=== PATIENT | male | born 1945 | race Caucasian/White ===

== ENCOUNTER 2017-05-09 20:30 | Emergency (ER) | payer OTHER ==
[~2017-05-09] VITALS: Ht 160 cm; Wt 68.0 kg
--- NOTE | ~2017-05-09 | EKG ---
[place], [place] ELECTROCARDIOGRAM REPORT NAME: YUAN ENRIQUE UNIT #: [id number] ROOM: DOCTOR: MARILOU CALDERA MD BIRTHDATE: [birth year] DOS: 05/09/2017 TIME: 2036 hours. Normal sinus rhythm at 76 beats per minute. There is 0.[address] segment pressure with T-wave abnormality in the V4 to V6 and inferiorly and aVL that raises a possibility of inferolateral wall myocardial ischemia. No previous tracing is available for comparison. MARILOU CALDERA MD CM:EKGRPT:ELECTROCARDIOGRAM REPORT [id number] MARILOU CALDERA MD
[~2017-05-09 20:30] MED LIST: CIPRO500 MG PO; COZAAR50 MG PO; DOXYCYCLINE100 MG PO; LISINOPRIL20 MG PO; LOPRESSOR100 MG PO; NORVASC10 MG PO; PROVENTIL0.09 MG/A1 IH; SPIRIVA18 MCG IH; ZOCOR40 MG PO
[2017-05-09 21:11] LABS: BASO # 0.1 10*3/uL (0.0-0.1); BASO % 0.6 % (0.0-1.0); EOS # 0.2 10*3/uL (0.0-0.4); HEMATOCRIT 51.4 % (42.0-52.0); HEMOGLOBIN 17.3 g/dl (14.0-18.0); LYMPH # 2.5 10*3/uL (1.3-4.4); LYMPH % 24.7 % (27.0-41.0); MEAN CELL VOLUME 94.8 fl (80.0-94.0); MEAN CORPUSCULAR HGB 31.9 pg (27.0-31.0); MEAN CORPUSCULAR HGB CONC 33.7 g/dl (33.0-37.0); MONO # 0.8 10*3/uL (0.1-1.0); NEUT # 6.5 10*3/uL (2.3-7.9); NEUT % 64.4 % (47.0-73.0); PLATELET COUNT AUTOMATED 115 10*3/uL (130-400); RED BLOOD COUNT 5.42 10*6/uL (4.50-5.90); RED CELL DISTRI WIDTH 13.3 % (0-14.5); WHITE BLOOD COUNT 10.1 10*3/uL (4.8-10.8)
[2017-05-09 21:28] LABS: ALBUMIN 4.1 gm/dl (3.1-4.5); ALKALINE PHOSPHATASE 53 U/L (45-117); BUN 22 mg/dl (7-24); CHLORIDE 103 mmol/L (98-107); CREATININE 0.83 mg/dL (0.70-1.30); LIPASE 123 U/L (73-393); POTASSIUM 4.2 mmol/L (3.5-5.1); SGOT/AST 18 IU/L (3-35); SGPT/ALT 24 U/L (12-78); SODIUM 139 mmol/L (136-145); TOTAL PROTEIN 7.5 gm/dL (6.4-8.2)
[2017-05-09 21:31] LABS: TROPONIN I < 0.015 ng/ml (<0.045)
[2017-05-09] MEDS ORDERED: VIBRAMYCIN100 MG PO (22:41)
[2017-05-09] MEDS ORDERED: DELTASONE20 M1 PO (22:41)
== END 2017-05-09 22:48 | disposition home or self-care (01) ==
LOC: ED 20:30
PROVIDERS: Physician Assistant
DX: J44.1 Chronic obstructive pulmonary disease with (acute) exacerbation (principal); F17.200 Nicotine dependence, unspecified, uncomplicated; Z79.899 Other long term (current) drug therapy

== ENCOUNTER 2017-12-17 22:12 | Inpatient (IN) | payer OTHER ==
[~2017-12-17] VITALS: Ht 162.6 cm; Wt 69.9 kg
--- NOTE | ~2017-12-17 | PR ---
[place], [place] PROGRESS NOTE NAME: YUAN ENRIQUE UNIT #: [id number] ROOM: 426 DOCTOR: ALICE AMES MD BIRTHDATE: [birth year] DOS: 12/21/2017 PULMONARY PROGRESS NOTE SUBJECTIVE: He has been noted similar symptoms of cough, which has been nonproductive. The patient without any sputum expectoration. Denies symptoms of chest pain or any hemoptysis. He denies symptoms of nausea, vomiting, edema, pain, lower extremity and weak and fatigued, but no edema noted, somewhat anxious for the procedure to be done today as a bronchoscopy. Remaining systems reviewed. They were noted all negative. OBJECTIVE: VITAL SIGNS: Normal temperature, respiratory 20, heart rate 58, blood pressure 160/73. Pulse oxygen saturation of the patient on 3 liters cannula 93% saturation recorded. HEENT: Head was atraumatic. Eyes nonicterus. NECK: Supple. CARDIOVASCULAR: S1, S2 is audible. LUNGS: The patient was noted without any crackles. Decreased breath sounds are noted with expiratory wheezing, no crackles. ABDOMEN: Soft, nontender. Bowel sounds present. EXTREMITIES: Without any acute edema. MUSCULOSKELETAL: Acute deformities. CENTRAL NERVOUS SYSTEM: Cranial nerves 2-12 intact. LABORATORY DATA: CBC that was done for this patient, there was no CBC done today. IMPRESSION: 1. The patient with ongoing acute exacerbation of chronic obstructive pulmonary disease with resolved acute pneumonia, nonresolving cough which remains persistent. Suspected mucus impaction of the major airways. 2. Leukocytosis was still noted. PLAN OF MANAGEMENT: No changes in the plan of care. The patient at this time to continue current therapy, plan of management and treatment. Usual care, other supportive plan of therapy and care. Additional treatment changes, the patient needs to be made based on the progression of the illness and after bronchoscopy as needed. All other supportive plan of therapy and care plan. [place], [place] PROGRESS NOTE NAME: YUAN ENRIQUE UNIT #: [id number] ROOM: 426 DOCTOR: ALICE AMES MD BIRTHDATE: [birth year] ALICE CANO MD CM:TANIKATRANS 1307 [id number] ALICE NOEL MD 12/21/17 1620 interface
--- NOTE | ~2017-12-17 | CON ---
[place], [place] REPORT OF CONSULTATION NAME: YUAN ENRIQUE UNIT #: [id number] ROOM: 426 DOCTOR: RACHAEL NOEL MDALICE BIRTHDATE: [birth year] DOS: 12/18/2017 PULMONARY CONSULTATION, EVALUATION AND MANAGEMENT CONSULTATION REQUESTED BY: Hospitalist Service. REASON FOR CONSULTATION: For assessment of acute respiratory failure with exacerbation of COPD. HISTORY OF PRESENT ILLNESS: A 72-year-old white male who has been noted with longstanding history of tobacco use since teenager, presented to the hospital. The patient has developed increased symptoms of shortness of breath, which has been ongoing for several days, but noted worsening in the past couple of days. The patient's shortness of breath also worsened when the patient was trying to cut grass today prior to the visit in the Emergency Room. The patient also noted symptoms of fever with chills, nausea, constipation, lightheadedness. Also reported symptoms of right upper quadrant pain. The patient does have cough without any sputum expectoration. Also noted some wheezing and tightness in the chest. The patient was started on the BiPAP and the patient was assessed in the Emergency Room. The chest x-ray was described as possibility of acute pneumonia. He has a CT scan of the abdomen, pelvis, and the chest all done in the Emergency Room. This morning, the patient has been noted sitting at the side of the bed, stated partial reduction in symptoms, still noted with ongoing respiratory complaints. At this time, the family members had been available in the room with the patient. REVIEW OF SYSTEMS: CONSTITUTIONAL SYMPTOMS: Fatigue and tiredness reported without any symptoms of fever or chills. EYES: Denies any burning, redness, tenderness or discharge. EARS, NOSE AND THROAT SYMPTOMS: Denies sore throat, hoarseness, otalgia, postnasal drainage or epistaxis. CARDIOVASCULAR SYSTEM: Denies angina pain, edema, or pain in the lower extremity. GASTROINTESTINAL SYMPTOMS: Denies dysphagia, nausea, vomiting, diarrhea, abdominal pain, hematemesis, melena, hematochezia, abnormal weight loss or dysphagia. GENITOURINARY SYMPTOMS: Denies dysuria, suprapubic pain or hematuria. MUSCULOSKELETAL SYMPTOMS: Denies acute joint pain, redness, or tenderness. CENTRAL NERVOUS SYSTEM: The patient was noted without any acute deficits. Denies any tingling sensation of the extremities, headache or diplopia. Remaining systems were reviewed. They were noted all negative. PAST MEDICAL HISTORY: 1. Essential hypertension. 2. Chronic obstructive pulmonary disease. 3. Chronic long-term nicotine dependence. PAST SURGICAL HISTORY: Noted abdominal hernia repair. [place], [place] REPORT OF CONSULTATION NAME: YUAN ENRIQUE UNIT #: [id number] ROOM: 426 DOCTOR: ALICE AMES MD BIRTHDATE: [birth year] SOCIAL HISTORY: The patient is , has 4 children. Denies any history of alcohol use or any illicit drug use. Tobacco use noted 1 pack of cigarettes for the past 60 years. FAMILY HISTORY: Both parents have been . HOME MEDICATIONS: Listed as use of: 1. Spiriva, albuterol sulfate with the nebulizer and the MDI use. 2. Norvasc 10 mg daily. 3. Lisinopril 20 mg daily. 4. Metoprolol tartrate 50 mg p.o. b.i.d. DRUG ALLERGIES: No known drug allergies. PHYSICAL EXAMINATION: GENERAL: A 72-year-old white male who has been noted currently awake and alert without any acute distress. VITAL SIGNS: Height of 5 feet 4 inches, weight 254 pounds, BMI 26.4. VITAL SIGNS: Temperature noted 102.5 degree Fahrenheit, later noted 101 and this morning is 97.8 degree Fahrenheit, respiratory rate of 20-31. The heart rate of 80-134. The blood pressure 156/68-120/54. The pulse oxygen saturation on 40% oxygen is 96% saturation recorded. HEENT: Head was atraumatic. Eyes nonicterus. NECK: Supple. CARDIOVASCULAR: S1, S2 audible. LUNGS: Diffuse poor air exchange noted in the lungs. There was no wheezing heard. ABDOMEN: Soft, flat, nontender, bowel sounds present. EXTREMITIES: Without any acute edema. MUSCULOSKELETAL SYMPTOMS: Without any acute deformities. CENTRAL NERVOUS SYSTEM: The patient's cranial nerves 2-12 intact without any focal deficit. LABORATORY DATA: The CBC that was done yesterday noted WBC count 14.4, hemoglobin 17.7, hematocrit 53.4 with platelet count recorded as normal. The CBC that was done this morning shows WBC count 11.7, hemoglobin 16.6, hematocrit 50.6, platelet count mildly decreased 127,000 today. CMP that was done yesterday noted essentially normal CMP. CMP this morning, glucose 152, otherwise remains normal. PT/PTT this morning normal. The chest x-ray shows hyperinflation with right upper lung infiltration. Influenza A and B nasal washing antigen negative. CT scan chest, abdomen and pelvis, which was done yesterday for the patient was reviewed, evidence of acute infiltration noted in the right upper lung, pleural area with the finding of moderate to severe centrilobular emphysema. CT scan of the abdomen and pelvis noted chronic diverticulosis without any acute abnormalities. The patient had a CTA of the chest that was done early this morning does not show evidence of pulmonary embolism. Other changes previously described remains unchanged. IMPRESSION: [place], [place] REPORT OF CONSULTATION NAME: YUAN ENRIQUE UNIT #: [id number] ROOM: 426 DOCTOR: ALICE AMES MD BIRTHDATE: [birth year] 1. The patient has been currently admitted to the hospital noted with increased respiratory symptom with acute exacerbation of chronic obstructive pulmonary disease as well as acute pneumonia right upper lobe, community-acquired infection. 2. Chronic nicotine dependence. 3. Polycythemia with suspicion of chronic hypoxia at home, which was untreated. 4. Long-term tobacco use as well. PLAN OF MANAGETMENT: The patient has been on IV hydration. Improvement in hemoglobin and hematocrit noted. Sputum for Gram stain and culture. Bronchodilators. Counseling for tobacco cessation was done for the patient more than 3 minutes as well on this admission. He was agreeable to use nicotine replacement patch 21 mg to the skin daily that was ordered. The dose of Solu-Medrol 60 mg continued. Continue antibiotic as Levaquin. Monitor culture results prior to making any changes and an immediate chest x-ray to assess the patient. Further adjustment in medication will be ordered accordingly. Thanks for allowing me to participate in the care of this patient. ALICE CANO MD CM:CONSTR:REPORT OF CONSULTATION 1348 12/19/17 0332 interface
--- NOTE | ~2017-12-17 | PR ---
[place], [place] PROGRESS NOTE NAME: YUAN ENRIQUE UNIT #: [id number] ROOM: 426 DOCTOR: ALICE AMES MD BIRTHDATE: [birth year] DOS: 12/20/2017 SUBJECTIVE: He was still noted coughing, which was noted mostly nonproductive, minimal sputum expectoration noted. Shortness of breath occurs with exertion, but the overall reduction was noted. The patient does complain of symptoms of tightness in chest intermittently. Wheezing has been decreasing. OBJECTIVE: VITAL SIGNS: For the patient which were recorded. The patient shows a temperature noted normal, respiration 20, heart rate of 84, blood pressure 133/62. The pulse oxygen saturation on 2 liters nasal cannula 93% saturation recorded. HEENT: Head was atraumatic. Eyes, nonicterus. NECK: Supple. CARDIOVASCULAR: S1, S2 audible. LUNGS: Decreased breath sounds noted in the lungs bilaterally without changes. Scattered wheezing. There were no crackles. ABDOMEN: Soft, nontender. LABORATORY DATA: CBC today was noted with WBC count 17.5, hemoglobin normal, hematocrit were normal. The BMP this morning was noted with normal BUN and creatinine. Chest x-ray, 2-view, which was done was noted changes of severe COPD without any acute pulmonary infiltration. IMPRESSION: Persistent nonresolving cough with reduction in symptoms of shortness of breath. Right upper lobe pneumonia, which has been noted previously, seemed to be resolved. Mucous impaction suspected. Leukocytosis still noted with gradual reduction. PLAN OF TREATMENT: The patient was considered for bronchoscopy to be done tomorrow morning for the inspection and removal of the mucous impaction of the major airway is very likely because of nonresolution of cough. Reduce the Solu-Medrol 40 mg b.i.d. Continuation of the supportive plan of management therapy, plan of care as in progress. Continue abstinence of tobacco use. [place], [place] PROGRESS NOTE NAME: YUAN ENRIQUE UNIT #: [id number] ROOM: 426 DOCTOR: ALICE AMES MD BIRTHDATE: [birth year] ALICE AZIZ, MD CM:TANIKATRANS 1245 ALICE NOEL MD 12/20/175 interface
--- NOTE | ~2017-12-17 | EKG ---
[place], [place] ELECTROCARDIOGRAM REPORT NAME: YUAN ENRIQUE UNIT #: [id number] ROOM: 426 DOCTOR: RACHAEL NOEL MD,ALICE BIRTHDATE: [birth year] DOS: 12/18/2017 Electrocardiogram done at 2314 hours on 12/17/2017. Sinus tachycardia noted, heart rate of [address] segment depression. The patient still noted in the chest leads V2, V3, V4 with LVH criteria met with the voltage for this patient as well. Rule out ischemia. ALICE CANO MD CM:EKGRPT:ELECTROCARDIOGRAM REPORT 1404 1442 ALICE NOEL MD
--- NOTE | ~2017-12-17 | EKG ---
[place], [place] ELECTROCARDIOGRAM REPORT NAME: YUAN ENRIQUE UNIT #: [id number] ROOM: 426 DOCTOR: RACHAEL NOEL MD,ALICE BIRTHDATE: [birth year] DOS: 12/18/2017 Echocardiogram was done on 12/18/2017 at 10:17 p.m. Sinus tachycardia noted with the patient's heart rate of 138 beats per minute. Ventricular bigeminy. Possible LVH to be considered based on voltage criteria. ST segment depression in the lateral leads, most likely would be considered from the LVH showed ischemia to be excluded. ALICE CANO MD CM:EKGRPT:ELECTROCARDIOGRAM REPORT 1402 1424 ALICE NOEL MD
--- NOTE | ~2017-12-17 | PROC NOTE ---
[place], [place] PROCEDURE NOTE NAME: YUAN ENRIQUE UNIT #: [id number] ROOM: 426 DOCTOR: RACHAEL NOEL MD,ALICE BIRTHDATE: [birth year] DOS: 12/21/2017 PROCEDURE: Bronchoscopy. PREOPERATIVE DIAGNOSES: Persistent severe nonresolving cough, suspected mucus impaction in the airway. POSTOPERATIVE DIAGNOSES: Persistent severe nonresolving cough, suspected mucus impaction in the airway. PROCEDURE DESCRIPTION: Informed consent obtained for the patient. The patient brought to the OR and placed in supine position. Conscious sedation administered by the Anesthesia Department. After achieving proper sedation, airway introduced into the mouth. Bronchoscope advanced to the airway into laryngeal area. Epiglottis vocal cord seen. The bronchoscope entered vocal cord and tracheal lumen. The tracheal lumen was noted with a small amount of secretions suctioned out. Right upper, right middle, right lower, left upper, lingular lobe bronchi were all examined. The patient noted moderate impaction of the mucus mainly in the lower lobe, in endobronchial tree, in right middle lobe. Secretions suctioned out clear with normal saline wash. No obstructing lesion noted. Procedure well tolerated by the patient without any difficulty. Postoperative findings will be discussed, once the patient recovered the effects of acute sedation. No family members available. The patient at this time to discuss the current findings. ALICE CANO MD CM:PROCNOTE:PROCEDURE NOTE 1309 1750 ALICE NOEL MD
--- NOTE | ~2017-12-17 | EKG ---
[place], [place] ELECTROCARDIOGRAM REPORT NAME: YUAN ENRIQUE UNIT #: [id number] ROOM: 426 DOCTOR: RACHAEL NOEL MD,ALICE BIRTHDATE: [birth year] DOS: 12/18/2017 Echocardiogram was done at 10:52 p.m. on 12/17/2017. Sinus tachycardia noted. Heart rate of 115 beats per minute. PVC was noted. The ST segment elevation was still noted persistent in the lateral leads might be related to the LVH, rule out ischemia. ALICE CANO MD CM:EKGRPT:ELECTROCARDIOGRAM REPORT 1403 1439 ALICE NOEL MD
--- NOTE | ~2017-12-17 | PR ---
[place], [place] PROGRESS NOTE NAME: YUAN ENRIQUE UNIT #: [id number] ROOM: 426 DOCTOR: RACHAEL NOEL MD,ALICE BIRTHDATE: [birth year] DOS: 12/22/2017 SUBJECTIVE: The patient had bronchoscopy done yesterday significant reduction and improvement in the respiratory symptoms were noted. Denies symptoms of chest pain or any hemoptysis. Wheezing noted absent. OBJECTIVE: VITAL SIGNS: This morning, normal temperature, respiratory rate 20, heart rate 97, blood pressure 134/70. The pulse oxygen saturation recorded as 90% on 2 L nasal cannula. HEAD, EYES, EARS, NOSE, AND THROAT: Head was atraumatic. Eyes nonicterus. NECK: Supple. CARDIOVASCULAR: S1, S2 audible. LUNGS: The patient was noted without any wheezing or crackles on today's exam. ABDOMEN: Soft, nontender, bowel sounds present. EXTREMITIES: No edema. LABORATORY DATA: Gram stain of the bronchial washings, many white blood cells with moderate gram-positive cocci appears in clusters. Urine culture the bronchial washing noted normal juan. IMPRESSION: ____ bronchoscopy, reduction in respiratory symptom resolving acute exacerbation of chronic obstructive pulmonary disease. PLAN OF TREATMENT: Upon discharge, the patient should be assessed for home oxygen need. The patient could be discharged home today if desired. Outpatient followup recommended. Absolute abstinence of tobacco use was recommended after discharge. Nicotine replacement patches could be used with tobacco cessation. ALICE CANO MD CM:PNTRANS 1124 1527 ALICE NOEL MD 12/22/17 1525 interface
--- NOTE | ~2017-12-17 | PR ---
[place], [place] PROGRESS NOTE NAME: KLAUSYUAN S UNIT #: [id number] ROOM: 426 DOCTOR: ALICE AMES MD BIRTHDATE: [birth year] DOS: 12/19/2017 SUBJECTIVE: The patient was still noted some cough without sputum expectoration, shortness of breath with the sputum expectoration noted small quantity. Denies symptoms of chest pain or any hemoptysis. The patient noted afebrile. PHYSICAL EXAMINATION: VITAL SIGNS: Normal temperature, respiratory rate 22, heart rate 143/74. Pulse oxygen saturation on 2 liters 90% saturation. HEAD, EYES, EARS, NOSE, AND THROAT: Showed no new change. Head was atraumatic. NECK: Supple. CARDIOVASCULAR SYSTEM: S1, S2 audible. LUNGS: Noted without any crackles or rhonchi. Mild expiratory wheezing noted in the lungs bilaterally. ABDOMEN: Soft, nontender. EXTREMITIES: No acute edema. LABORATORY DATA: BMP noted normal BUN and creatinine. CBC: WBC count 18,000, hemoglobin and hematocrit normal. Blood culture, no bacterial growth. Preliminary for of this month, final culture results for the of this month with the final culture results were pending. IMPRESSION: 1. The patient with recurrent noted with ongoing acute exacerbation of chronic obstructive pulmonary disease with acute bronchitis. The patient's leukocytosis induced by the corticosteroids very likely. 2. Polycythemia that was noted previously resolved, most likely related to past hypoxia, which would be considered [facility]. 3. Acute pneumonia in the right upper lobe. PLAN OF MANAGEMENT: Obtain a chest x-ray in the morning to reassess the pneumonia progression. Continue antibiotics, bronchodilators, oxygen supplementation, corticosteroids and other therapies. Usual care, other supportive plan of treatment as well. Additional treatment changes to be made for this patient based on the progression of the illness. [place], [place] PROGRESS NOTE NAME: YUAN ENRIQUE UNIT #: [id number] ROOM: 426 DOCTOR: ALICE AMES MD BIRTHDATE: [birth year] ALICE CANO MD CM:PNTRANS 1213 1357 ALICE NOEL MD 12/19/17 1356 interface
[2017-12-17 22:12] VITALS: BP 168/70
[~2017-12-17 22:12] MED LIST changes: +DELTASONE20 M1 PO; +VIBRAMYCIN100 MG PO
[2017-12-17 22:26] LABS: BASO # 0.1 10*3/uL (0.0-0.1); BASO % 0.4 % (0.0-1.0); EOS # 0.1 10*3/uL (0.0-0.4); EOS % 0.6 % (1.0-4.0); HEMATOCRIT 53.4 % (42.0-52.0); HEMOGLOBIN 17.7 g/dl (14.0-18.0); LYMPH # 1.7 10*3/uL (1.3-4.4); LYMPH % 12.1 % (27.0-41.0); MEAN CORPUSCULAR HGB 31.2 pg (27.0-31.0); MEAN CORPUSCULAR HGB CONC 33.1 g/dl (33.0-37.0); MEAN PLATELET VOLUME 12.4 fl (9.6-12.3); MONO # 1.3 10*3/uL (0.1-1.0); MONO % 8.7 % (3.0-9.0); NEUT # 11.2 10*3/uL (2.3-7.9); NEUT % 77.9 % (47.0-73.0); PLATELET COUNT AUTOMATED 199 10*3/uL (130-400); RED BLOOD COUNT 5.68 10*6/uL (4.50-5.90); RED CELL DISTRI WIDTH 13.7 % (0-14.5); WHITE BLOOD COUNT 14.4 10*3/uL (4.8-10.8)
[2017-12-17 22:40] VITALS: BP 129/77
[2017-12-17 22:58] LABS: ABG BASE EXCESS -0.4 mmol/L (-2.0-2.0); ABG HCO3 23.7 mmol/l (22-26); ABG O2 SATURATION 94.7 % (95-97); ARTERIAL BLOOD GAS PCO2 43.8 mmHg (35-45); ARTERIAL BLOOD GAS PH 7.365 (7.35-7.45)
[2017-12-17 23:02] VITALS: BP 129/77
[2017-12-17] MEDS ORDERED: ANORO ELLIPTA1 EACH INH (23:06)
[2017-12-17 23:27] VITALS: BP 132/62
[2017-12-17 23:27] LABS: ACT PARTIAL THROMBO TIME 28.2 SECONDS (20.8-31.5); INTERNATIONAL NORM RATIO 0.9 (2.0-3.5)
[2017-12-17 23:32] LABS: ALBUMIN 3.3 gm/dl (3.1-4.5); ALKALINE PHOSPHATASE 54 U/L (45-117); BUN 16 mg/dl (7-24); CHLORIDE 106 mmol/L (98-107); CREATININE 0.76 mg/dL (0.70-1.30); SGOT/AST 21 IU/L (3-35); SGPT/ALT 15 U/L (12-78); SODIUM 139 mmol/L (136-145); TOTAL PROTEIN 6.7 gm/dL (6.4-8.2)
[2017-12-17 23:33] LABS: TROPONIN I 0.041 ng/ml (<0.045)
[2017-12-17 23:45] VITALS: BP 132/57
[2017-12-18] VITALS (12 sets, daily range): BP systolic 108–162; BP diastolic 54–68
[2017-12-18 00:39] LABS: BILIRUBIN NEGATIVE (NEGATIVE); BLOOD TRACE-INTACT (NEGATIVE); CLARITY CLEAR (CLEAR); COLOR YELLOW (YELLOW); GLUCOSE NEGATIVE (NEGATIVE); KETONE TRACE (NEGATIVE); LEUKO ESTERASE 1+ (NEGATIVE); NITRITE NEGATIVE (NEGATIVE); PH 5.5 (5.0-9.0); UROBILINOGEN 0.2 E.U./dl (0.2-1.0)
[2017-12-18 04:34] LABS: ALBUMIN 3.7 gm/dl (3.1-4.5); ALKALINE PHOSPHATASE 63 U/L (45-117); BUN 15 mg/dl (7-24); CHLORIDE 102 mmol/L (98-107); CHOLESTEROL 123 mg/dL (<200); CREATININE 0.94 mg/dL (0.70-1.30); HDL CHOLESTEROL 34 mg/dl (40-60); LDL CHOLESTEROL 78 mg/dL (9-159); PHOSPHOROUS 2.6 mg/dL (2.5-4.9); SGOT/AST 17 IU/L (3-35); SGPT/ALT 19 U/L (12-78); SODIUM 138 mmol/L (136-145); TOTAL PROTEIN 7.7 gm/dL (6.4-8.2); TRIGLYCERIDES 57 mg/dl (<150); VLDL CHOLESTEROL 11 mg/dL (6-40)
[2017-12-18 04:39] LABS: THYROID STIM HORMONE (HS) 0.258 uIU/ml (0.358-4.75)
[2017-12-18 04:43] LABS: HEMATOCRIT 50.6 % (42.0-52.0); HEMOGLOBIN 16.6 g/dl (14.0-18.0); MEAN CELL VOLUME 95.3 fl (80.0-94.0); MEAN CORPUSCULAR HGB 31.3 pg (27.0-31.0); MEAN CORPUSCULAR HGB CONC 32.8 g/dl (33.0-37.0); MEAN PLATELET VOLUME 12.3 fl (9.6-12.3); RED BLOOD COUNT 5.31 10*6/uL (4.50-5.90); RED CELL DISTRI WIDTH 13.6 % (0-14.5); WHITE BLOOD COUNT 11.7 10*3/uL (4.8-10.8)
[2017-12-18 04:49] LABS: PLATELET COUNT AUTOMATED 127 10*3/uL (130-400)
[2017-12-18 04:58] LABS: ACT PARTIAL THROMBO TIME 28.9 SECONDS (20.8-31.5); INTERNATIONAL NORM RATIO 0.9 (2.0-3.5)
[2017-12-18 05:02] LABS: PLATELET SUFFICIENCY LOW (NORMAL); TOTAL CELLS COUNTED 100 #CELLS
[2017-12-18 07:04] LABS: VITAMIN D, 25-HYDROXY 28.2 ng/mL (30-100)
[2017-12-19] VITALS: BP 143/74
[2017-12-19 08:00] VITALS: BP 138/66
[2017-12-19 08:04] LABS: BASO % 0.1 % (0.0-1.0); HEMATOCRIT 46.9 % (42.0-52.0); HEMOGLOBIN 15.2 g/dl (14.0-18.0); LYMPH # 0.7 10*3/uL (1.3-4.4); LYMPH % 3.7 % (27.0-41.0); MEAN CELL VOLUME 94.7 fl (80.0-94.0); MEAN CORPUSCULAR HGB 30.7 pg (27.0-31.0); MEAN CORPUSCULAR HGB CONC 32.4 g/dl (33.0-37.0); MEAN PLATELET VOLUME 11.6 fl (9.6-12.3); MONO # 1.1 10*3/uL (0.1-1.0); MONO % 5.9 % (3.0-9.0); NEUT # 16.2 10*3/uL (2.3-7.9); NEUT % 89.7 % (47.0-73.0); PLATELET COUNT AUTOMATED 125 10*3/uL (130-400); RED BLOOD COUNT 4.95 10*6/uL (4.50-5.90); RED CELL DISTRI WIDTH 13.7 % (0-14.5)
[2017-12-19 08:21] LABS: ALBUMIN 3.3 gm/dl (3.1-4.5); ALKALINE PHOSPHATASE 55 U/L (45-117); BUN 16 mg/dl (7-24); CHLORIDE 111 mmol/L (98-107); POTASSIUM 4.1 mmol/L (3.5-5.1); SGOT/AST 27 IU/L (3-35); SGPT/ALT 20 U/L (12-78); SODIUM 143 mmol/L (136-145); TOTAL PROTEIN 6.8 gm/dL (6.4-8.2)
[2017-12-19 12:00] VITALS: BP 127/70
[2017-12-19 16:00] VITALS: BP 163/73
[2017-12-19 20:00] VITALS: BP 153/66
[2017-12-20] VITALS: BP 126/96
[2017-12-20 06:27] LABS: HEMATOCRIT 48.3 % (42.0-52.0); HEMOGLOBIN 15.9 g/dl (14.0-18.0); MEAN CELL VOLUME 94.5 fl (80.0-94.0); MEAN CORPUSCULAR HGB 31.1 pg (27.0-31.0); MEAN CORPUSCULAR HGB CONC 32.9 g/dl (33.0-37.0); PLATELET COUNT AUTOMATED 140 10*3/uL (130-400); RED BLOOD COUNT 5.11 10*6/uL (4.50-5.90); RED CELL DISTRI WIDTH 13.9 % (0-14.5); WHITE BLOOD COUNT 17.5 10*3/uL (4.8-10.8)
[2017-12-20 06:56] LABS: BUN 16 mg/dl (7-24); CHLORIDE 105 mmol/L (98-107); CREATININE 0.44 mg/dL (0.70-1.30); POTASSIUM 3.9 mmol/L (3.5-5.1); SODIUM 140 mmol/L (136-145)
[2017-12-20 07:11] LABS: TOTAL CELLS COUNTED 100 #CELLS
[2017-12-20 07:12] LABS: PLATELET SUFFICIENCY NORMAL (NORMAL)
[2017-12-20 08:00] VITALS: BP 154/79
[2017-12-20 12:00] VITALS: BP 133/62
[2017-12-20 16:00] VITALS: BP 147/67
[2017-12-20 20:00] VITALS: BP 115/67
[2017-12-21] VITALS (9 sets, daily range): BP systolic 119–165; BP diastolic 56–80
[2017-12-22] VITALS: BP 127/87
[2017-12-22 08:00] VITALS: BP 134/70
[2017-12-22] MEDS ORDERED: DOXYCYCLINE100 M3 PO (11:26)
[2017-12-22] MEDS ORDERED: PREDNISONE10 MG PO (11:26)
[2017-12-22] MEDS ORDERED: NICODERM CQ1 EAC2 T (13:14)
[2017-12-22 15:06] LABS: ACID FAST SPEC PROCESSING Concentration (.)
== END 2017-12-22 13:44 | disposition home or self-care (01) | DRG 871 ==
LOC: ED 22:12 → 4E 12-18 01:38 → EDHOLD 12-18 01:38 → 4E 12-18 02:22
PROVIDERS: Family Medicine; Internal Medicine; Internal Medicine Critical Care Medicine; Nurse Practitioner Family; Student in an Organized Health Care Education/Training Program
PROC: 5A09357 Assistance with Respiratory Ventilation, Less than 24 Consecutive Hours, Continuous Positive Airway Pressure (ICD-10-PCS; principal; 2017-12-18)
PROC: 0BC18ZZ Extirpation of Matter from Trachea, Via Natural or Artificial Opening Endoscopic (ICD-10-PCS; 2017-12-21)
PROC: 0BC78ZZ Extirpation of Matter from Left Main Bronchus, Via Natural or Artificial Opening Endoscopic (ICD-10-PCS; 2017-12-21)
PROC: 0BCB8ZZ Extirpation of Matter from Left Lower Lobe Bronchus, Via Natural or Artificial Opening Endoscopic (ICD-10-PCS; 2017-12-21)
PROC: 0BC98ZZ Extirpation of Matter from Lingula Bronchus, Via Natural or Artificial Opening Endoscopic (ICD-10-PCS; 2017-12-21)
PROC: 0BC88ZZ Extirpation of Matter from Left Upper Lobe Bronchus, Via Natural or Artificial Opening Endoscopic (ICD-10-PCS; 2017-12-21)
PROC: 0BC48ZZ Extirpation of Matter from Right Upper Lobe Bronchus, Via Natural or Artificial Opening Endoscopic (ICD-10-PCS; 2017-12-21)
PROC: 0BC58ZZ Extirpation of Matter from Right Middle Lobe Bronchus, Via Natural or Artificial Opening Endoscopic (ICD-10-PCS; 2017-12-21)
PROC: 0BC68ZZ Extirpation of Matter from Right Lower Lobe Bronchus, Via Natural or Artificial Opening Endoscopic (ICD-10-PCS; 2017-12-21)
PROC: 0BC38ZZ Extirpation of Matter from Right Main Bronchus, Via Natural or Artificial Opening Endoscopic (ICD-10-PCS; 2017-12-21)
DX: A41.9 Sepsis, unspecified organism (principal); J18.1 Lobar pneumonia, unspecified organism; J96.00 Acute respiratory failure, unspecified whether with hypoxia or hypercapnia; J44.0 Chronic obstructive pulmonary disease with (acute) lower respiratory infection; J44.1 Chronic obstructive pulmonary disease with (acute) exacerbation; E83.41 Hypermagnesemia; F17.210 Nicotine dependence, cigarettes, uncomplicated; R73.9 Hyperglycemia, unspecified; R65.20 Severe sepsis without septic shock; I10 Essential (primary) hypertension; D47.3 Essential (hemorrhagic) thrombocythemia; Z79.899 Other long term (current) drug therapy; Z72.89 Other problems related to lifestyle; Z71.6 Tobacco abuse counseling; Z82.49 Family history of ischemic heart disease and other diseases of the circulatory system; Z83.3 Family history of diabetes mellitus

== ENCOUNTER 2021-01-26 01:25 | Emergency (ER) | payer OTHER ==
[~2021-01-26] VITALS: Ht 175.2 cm; Wt 66.2 kg
[~2021-01-26 01:25] MED LIST changes: +ANORO ELLIPTA1 EACH INH; +DOXYCYCLINE100 M3 PO; +LOPRESSOR100 M1 PO; +NICODERM CQ1 EAC2 T; +PREDNISONE10 MG PO; +PROAIR HFA8.5 GM INH; +XARE20MG PO; +ZITHROMAX500 MG PO
[2021-01-26 01:41] LABS: BASO % 0.5 % (0.0-1.0); EOS # 0.3 10*3/uL (0.0-0.4); EOS % 3.4 % (1.0-4.0); HEMATOCRIT 45.9 % (42.0-52.0); LYMPH # 2.2 10*3/uL (1.3-4.4); LYMPH % 25.3 % (27.0-41.0); MEAN CORPUSCULAR HGB 30.4 pg (27.0-31.0); MEAN CORPUSCULAR HGB CONC 31.4 g/dl (33.0-37.0); MEAN PLATELET VOLUME 12.1 fl (9.6-12.3); MONO # 0.9 10*3/uL (0.1-1.0); MONO % 10.2 % (3.0-9.0); NEUT # 5.2 10*3/uL (2.3-7.9); NEUT % 60.6 % (47.0-73.0); PLATELET COUNT AUTOMATED 126 10*3/uL (130-400); RED BLOOD COUNT 4.73 10*6/uL (4.50-5.90); RED CELL DISTRI WIDTH 13.2 % (0-14.5); WHITE BLOOD COUNT 8.5 10*3/uL (4.8-10.8)
[2021-01-26 01:58] LABS: ALBUMIN 3.3 gm/dl (3.1-4.5); ALKALINE PHOSPHATASE 70 U/L (45-117); BUN 19 mg/dl (7-24); CHLORIDE 105 mmol/L (98-107); CREATININE 0.75 mg/dL (0.70-1.30); POTASSIUM 3.9 mmol/L (3.5-5.1); SGOT/AST 16 IU/L (3-35); SGPT/ALT 21 U/L (12-78); SODIUM 141 mmol/L (136-145)
[2021-01-26 02:00] LABS: TROPONIN I < 0.015 ng/ml (<0.045)
[2021-01-26] MEDS ORDERED: OMEPRAZOLE40 MG PO (03:49)
[2021-01-26] MEDS ORDERED: PREDNISONE20 M1 PO (03:49)
== END 2021-01-26 04:35 | disposition home or self-care (01) ==
LOC: ED 01:25
PROVIDERS: Internal Medicine
DX: J44.1 Chronic obstructive pulmonary disease with (acute) exacerbation (principal); K21.9 Gastro-esophageal reflux disease without esophagitis; Z79.899 Other long term (current) drug therapy; Z98.890 Other specified postprocedural states

== ENCOUNTER 2021-03-04 18:50 | Inpatient (IN) | payer OTHER ==
[~2021-03-04] VITALS: Ht 177.8 cm; Wt 74.4 kg
[~2021-03-04 18:50] MED LIST changes: -LOPRESSOR100 M1 PO; +LOPRESSOR50 M1 PO; +OMEPRAZOLE40 MG PO; +PREDNISONE20 M1 PO
[2021-03-04 18:59] VITALS: BP 115/74
[2021-03-04 19:08] LABS: BASO % 0.3 % (0.0-1.0); HEMATOCRIT 43.8 % (42.0-52.0); LYMPH # 0.6 10*3/uL (1.3-4.4); LYMPH % 4.9 % (27.0-41.0); MEAN CELL VOLUME 102.1 fl (80.0-94.0); MEAN CORPUSCULAR HGB 29.8 pg (27.0-31.0); MEAN CORPUSCULAR HGB CONC 29.2 g/dl (33.0-37.0); MEAN PLATELET VOLUME 12.7 fl (9.6-12.3); MONO # 0.7 10*3/uL (0.1-1.0); MONO % 6.5 % (3.0-9.0); NEUT # 9.7 10*3/uL (2.3-7.9); NEUT % 87.4 % (47.0-73.0); PLATELET COUNT AUTOMATED 129 10*3/uL (130-400); RED BLOOD COUNT 4.29 10*6/uL (4.50-5.90); RED CELL DISTRI WIDTH 13.7 % (0-14.5); WHITE BLOOD COUNT 11.1 10*3/uL (4.8-10.8)
[2021-03-04 19:33] LABS: ALBUMIN 3.5 gm/dl (3.1-4.5); ALKALINE PHOSPHATASE 78 U/L (45-117); BUN 36 mg/dl (7-24); CHLORIDE 102 mmol/L (98-107); CREATININE 0.79 mg/dL (0.70-1.30); POTASSIUM 4.6 mmol/L (3.5-5.1); SGOT/AST 30 IU/L (3-35); SGPT/ALT 38 U/L (12-78); SODIUM 142 mmol/L (136-145); TOTAL PROTEIN 6.9 gm/dL (6.4-8.2)
[2021-03-04 19:34] LABS: TROPONIN I 0.038 ng/ml (<0.045)
[2021-03-04] MEDS ORDERED: SERTRALINE HYD100 MG PO (20:27)
[2021-03-04] MEDS ORDERED: TAMSULOSIN HCL0.4 MG PO (20:28)
[2021-03-04 20:53] VITALS: BP 101/48; BP 104/52; BP 105/61; BP 87/52; BP 97/49; BP 97/57; BP 98/53
[2021-03-04 22:04] VITALS: BP 107/49
[2021-03-04 22:32] VITALS: BP 111/57
[2021-03-04 23:06] VITALS: BP 109/58
[2021-03-04 23:13] VITALS: BP 107/57
[2021-03-05] VITALS (19 sets, daily range): BP systolic 95–180; BP diastolic 49–82
[2021-03-05 00:21] LABS: ABG BASE EXCESS 6.5 mmol/L (-2.0-2.0); ARTERIAL BLOOD GAS PH 7.223 (7.35-7.45); ARTERIAL BLOOD GAS PO2 71.3 (80-90)
[2021-03-05 05:36] LABS: ALBUMIN 3.3 gm/dl (3.1-4.5); ALKALINE PHOSPHATASE 71 U/L (45-117); BUN 39 mg/dl (7-24); CHLORIDE 102 mmol/L (98-107); CREATININE 0.82 mg/dL (0.70-1.30); POTASSIUM 4.7 mmol/L (3.5-5.1); SGOT/AST 26 IU/L (3-35); SGPT/ALT 35 U/L (12-78); SODIUM 140 mmol/L (136-145); TOTAL PROTEIN 6.5 gm/dL (6.4-8.2)
[2021-03-05 06:21] LABS: HEMATOCRIT 42.4 % (42.0-52.0)
[2021-03-05 06:23] LABS: BASO % 0.1 % (0.0-1.0); LYMPH # 0.4 10*3/uL (1.3-4.4); LYMPH % 4.5 % (27.0-41.0); MEAN CELL VOLUME 101.4 fl (80.0-94.0); MEAN CORPUSCULAR HGB 29.7 pg (27.0-31.0); MEAN CORPUSCULAR HGB CONC 29.2 g/dl (33.0-37.0); MEAN PLATELET VOLUME 13.4 fl (9.6-12.3); MONO # 0.3 10*3/uL (0.1-1.0); MONO % 3.6 % (3.0-9.0); NEUT # 8.5 10*3/uL (2.3-7.9); NEUT % 90.9 % (47.0-73.0); PLATELET COUNT AUTOMATED 119 10*3/uL (130-400); RED BLOOD COUNT 4.18 10*6/uL (4.50-5.90); RED CELL DISTRI WIDTH 13.6 % (0-14.5); WHITE BLOOD COUNT 9.4 10*3/uL (4.8-10.8)
[2021-03-05 06:34] LABS: ACT PARTIAL THROMBO TIME 29.9 SECONDS (20.0-32.1)
[2021-03-05 07:20] LABS: ABG BASE EXCESS 9.4 mmol/L (-2.0-2.0); ARTERIAL BLOOD GAS PH 7.335 (7.35-7.45); ARTERIAL BLOOD GAS PO2 84.2 (80-90)
[2021-03-05 07:34] LABS: PLATELET SUFFICIENCY LOW (NORMAL); TOTAL CELLS COUNTED 100 #CELLS
[2021-03-05] MEDS ORDERED: VENTOLIN 02.5 MG/3 M INH (10:00)
[2021-03-06] VITALS (8 sets, daily range): BP systolic 77–120; BP diastolic 0–81
[2021-03-06 05:39] LABS: ALBUMIN 3.3 gm/dl (3.1-4.5); ALKALINE PHOSPHATASE 69 U/L (45-117); BUN 46 mg/dl (7-24); CHLORIDE 100 mmol/L (98-107); CREATININE 0.83 mg/dL (0.70-1.30); POTASSIUM 4.3 mmol/L (3.5-5.1); SGOT/AST 32 IU/L (3-35); SGPT/ALT 35 U/L (12-78); SODIUM 138 mmol/L (136-145); TOTAL PROTEIN 6.5 gm/dL (6.4-8.2)
[2021-03-06 06:37] LABS: HEMATOCRIT 41.4 % (42.0-52.0); MEAN CELL VOLUME 99.3 fl (80.0-94.0); MEAN CORPUSCULAR HGB 29.3 pg (27.0-31.0); MEAN CORPUSCULAR HGB CONC 29.5 g/dl (33.0-37.0); MEAN PLATELET VOLUME 12.9 fl (9.6-12.3); PLATELET COUNT AUTOMATED 137 10*3/uL (130-400); RED BLOOD COUNT 4.17 10*6/uL (4.50-5.90); RED CELL DISTRI WIDTH 13.5 % (0-14.5); WHITE BLOOD COUNT 14.3 10*3/uL (4.8-10.8)
[2021-03-06 07:31] LABS: TOTAL CELLS COUNTED 100 #CELLS
[2021-03-06 07:32] LABS: PLATELET SUFFICIENCY NORMAL (NORMAL)
[2021-03-06 11:46] LABS: ABG BASE EXCESS 1.5 mmol/L (-2.0-2.0); ARTERIAL BLOOD GAS PH 7.281 (7.35-7.45); ARTERIAL BLOOD GAS PO2 76.8 (80-90)
[2021-03-06 13:21] LABS: BILIRUBIN Negative (Negative); BLOOD 3+ (Negative); CLARITY Cloudy (Clear); COLOR Dark Yellow (Yellow); GLUCOSE Negative (Negative); KETONE Trace (Negative); LEUKO ESTERASE Trace (Negative); NITRITE Negative (Negative); PH 5.5 (4.5-8.0); SPECIFIC GRAVITY 1.025 (1.001-1.030)
[2021-03-06 14:08] LABS: BACTERIA TRACE; EPITHELIAL CELLS 0-2; MUCOUS TRACE; RBC TNTC rbc/hpf (0-2)
[2021-03-07] VITALS: BP 102/58
[2021-03-07 04:00] VITALS: BP 113/61
[2021-03-07 04:45] LABS: BASO % 0.1 % (0.0-1.0); HEMATOCRIT 40.1 % (42.0-52.0); LYMPH # 0.3 10*3/uL (1.3-4.4); LYMPH % 2.6 % (27.0-41.0); MEAN CELL VOLUME 97.8 fl (80.0-94.0); MEAN CORPUSCULAR HGB 29.5 pg (27.0-31.0); MEAN CORPUSCULAR HGB CONC 30.2 g/dl (33.0-37.0); MEAN PLATELET VOLUME 12.8 fl (9.6-12.3); MONO # 0.9 10*3/uL (0.1-1.0); MONO % 7.4 % (3.0-9.0); NEUT # 11.2 10*3/uL (2.3-7.9); NEUT % 89.5 % (47.0-73.0); PLATELET COUNT AUTOMATED 117 10*3/uL (130-400); RED CELL DISTRI WIDTH 13.7 % (0-14.5); WHITE BLOOD COUNT 12.5 10*3/uL (4.8-10.8)
[2021-03-07 05:04] LABS: ALKALINE PHOSPHATASE 60 U/L (45-117); BUN 44 mg/dl (7-24); CHLORIDE 103 mmol/L (98-107); CREATININE 0.75 mg/dL (0.70-1.30); POTASSIUM 3.8 mmol/L (3.5-5.1); SGOT/AST 23 IU/L (3-35); SGPT/ALT 30 U/L (12-78); SODIUM 139 mmol/L (136-145)
[2021-03-07 10:00] VITALS: BP 140/80
[2021-03-07 11:42] LABS: ABG BASE EXCESS 8.5 mmol/L (-2.0-2.0); ARTERIAL BLOOD GAS PH 7.369 (7.35-7.45); ARTERIAL BLOOD GAS PO2 72.2 (80-90)
[2021-03-07 12:12] VITALS: BP 104/60
[2021-03-07 16:00] VITALS: BP 137/96
[2021-03-07 20:00] VITALS: BP 136/90
[2021-03-08] VITALS (15 sets, daily range): BP systolic 55–154; BP diastolic 0–94
[2021-03-08 06:05] LABS: ALBUMIN 3.1 gm/dl (3.1-4.5); BUN 36 mg/dl (7-24); CHLORIDE 103 mmol/L (98-107); POTASSIUM 4.5 mmol/L (3.5-5.1); SGPT/ALT 32 U/L (12-78); SODIUM 137 mmol/L (136-145)
[2021-03-08 06:06] LABS: HEMATOCRIT 44.4 % (42.0-52.0); MEAN CELL VOLUME 99.8 fl (80.0-94.0); MEAN CORPUSCULAR HGB 29.4 pg (27.0-31.0); MEAN CORPUSCULAR HGB CONC 29.5 g/dl (33.0-37.0); MEAN PLATELET VOLUME 13.1 fl (9.6-12.3); PLATELET COUNT AUTOMATED 115 10*3/uL (130-400); RED BLOOD COUNT 4.45 10*6/uL (4.50-5.90); RED CELL DISTRI WIDTH 13.8 % (0-14.5); WHITE BLOOD COUNT 14.6 10*3/uL (4.8-10.8)
[2021-03-08 06:08] LABS: ALKALINE PHOSPHATASE 64 U/L (45-117); CREATININE 0.61 mg/dL (0.70-1.30); SGOT/AST 28 IU/L (3-35)
[2021-03-08 07:30] LABS: PLATELET SUFFICIENCY LOW (NORMAL); TOTAL CELLS COUNTED 100 #CELLS
[2021-03-08 12:16] LABS: ABG BASE EXCESS 9.2 mmol/L (-2.0-2.0); ARTERIAL BLOOD GAS PH 7.395 (7.35-7.45); ARTERIAL BLOOD GAS PO2 55.3 (80-90)
[2021-03-09] VITALS (12 sets, daily range): BP systolic 93–136; BP diastolic 46–82
[2021-03-09 08:57] LABS: ABG BASE EXCESS 9.7 mmol/L (-2.0-2.0); ARTERIAL BLOOD GAS PH 7.467 (7.35-7.45); ARTERIAL BLOOD GAS PO2 59.7 (80-90)
[2021-03-09 15:55] LABS: CHLORIDE 101 mmol/L (98-107); POTASSIUM 4.2 mmol/L (3.5-5.1); SODIUM 139 mmol/L (136-145)
[2021-03-09 16:08] LABS: BUN 28 mg/dl (7-24)
[2021-03-10] VITALS (16 sets, daily range): BP systolic 104–159; BP diastolic 48–80
[2021-03-10 06:00] LABS: ALBUMIN 2.7 gm/dl (3.1-4.5); BUN 22 mg/dl (7-24); CHLORIDE 99 mmol/L (98-107); POTASSIUM 3.6 mmol/L (3.5-5.1); SODIUM 138 mmol/L (136-145)
[2021-03-10 06:04] LABS: ALKALINE PHOSPHATASE 66 U/L (45-117); CREATININE 0.56 mg/dL (0.70-1.30); SGOT/AST 18 IU/L (3-35); SGPT/ALT 23 U/L (12-78); TOTAL PROTEIN 5.8 gm/dL (6.4-8.2)
[2021-03-10 06:31] LABS: HEMATOCRIT 42.2 % (42.0-52.0); MEAN CORPUSCULAR HGB 29.9 pg (27.0-31.0); MEAN CORPUSCULAR HGB CONC 30.8 g/dl (33.0-37.0); MEAN PLATELET VOLUME 13.8 fl (9.6-12.3); PLATELET COUNT AUTOMATED 103 10*3/uL (130-400); RED BLOOD COUNT 4.35 10*6/uL (4.50-5.90); RED CELL DISTRI WIDTH 13.7 % (0-14.5); WHITE BLOOD COUNT 16.6 10*3/uL (4.8-10.8)
[2021-03-10 07:19] LABS: PLATELET SUFFICIENCY LOW (NORMAL); TOTAL CELLS COUNTED 100 #CELLS
[2021-03-10 08:17] LABS: ABG BASE EXCESS 8.9 mmol/L (-2.0-2.0); ARTERIAL BLOOD GAS PH 7.433 (7.35-7.45); ARTERIAL BLOOD GAS PO2 60.2 (80-90)
== END 2021-03-10 21:15 | disposition short-term general hospital (02) | DRG 308 ==
LOC: ED 18:50 → ICCU 23:28 → EDHOLD 23:28 → ICCU 03-05 01:24
PROVIDERS: Hospitalist; Internal Medicine; Social Worker Clinical; Student in an Organized Health Care Education/Training Program; ADMIT Internal Medicine; ATTEND Internal Medicine
PROC: 5A09457 Assistance with Respiratory Ventilation, 24-96 Consecutive Hours, Continuous Positive Airway Pressure (ICD-10-PCS; 2021-03-04)
PROC: 5A09457 Assistance with Respiratory Ventilation, 24-96 Consecutive Hours, Continuous Positive Airway Pressure (ICD-10-PCS; 2021-03-06)
PROC: 5A09357 Assistance with Respiratory Ventilation, Less than 24 Consecutive Hours, Continuous Positive Airway Pressure (ICD-10-PCS; 2021-03-07)
PROC: 5A09357 Assistance with Respiratory Ventilation, Less than 24 Consecutive Hours, Continuous Positive Airway Pressure (ICD-10-PCS; 2021-03-08)
PROC: 5A2204Z Restoration of Cardiac Rhythm, Single (ICD-10-PCS; 2021-03-09)
PROC: B24BZZ4 Ultrasonography of Heart with Aorta, Transesophageal (ICD-10-PCS; 2021-03-09)
PROC: 5A09357 Assistance with Respiratory Ventilation, Less than 24 Consecutive Hours, Continuous Positive Airway Pressure (ICD-10-PCS; 2021-03-09)
PROC: 5A2204Z Restoration of Cardiac Rhythm, Single (ICD-10-PCS; principal; 2021-03-10)
PROC: 5A09357 Assistance with Respiratory Ventilation, Less than 24 Consecutive Hours, Continuous Positive Airway Pressure (ICD-10-PCS; 2021-03-10)
DX: I48.91 Unspecified atrial fibrillation (principal); I50.33 Acute on chronic diastolic (congestive) heart failure; J96.22 Acute and chronic respiratory failure with hypercapnia; R65.11 Systemic inflammatory response syndrome (SIRS) of non-infectious origin with acute organ dysfunction; G93.41 Metabolic encephalopathy; E43 Unspecified severe protein-calorie malnutrition; J96.21 Acute and chronic respiratory failure with hypoxia; D61.818 Other pancytopenia; N17.9 Acute kidney failure, unspecified; E87.4 Mixed disorder of acid-base balance; J98.11 Atelectasis; J44.1 Chronic obstructive pulmonary disease with (acute) exacerbation; I48.0 Paroxysmal atrial fibrillation; Z66 Do not resuscitate; Z51.5 Encounter for palliative care; I11.0 Hypertensive heart disease with heart failure; F17.210 Nicotine dependence, cigarettes, uncomplicated; E83.41 Hypermagnesemia; E83.39 Other disorders of phosphorus metabolism; I95.9 Hypotension, unspecified; G30.9 Alzheimer's disease, unspecified; F32.9 Major depressive disorder, single episode, unspecified; F41.9 Anxiety disorder, unspecified; R07.9 Chest pain, unspecified; I70.0 Atherosclerosis of aorta; F02.80 Dementia in other diseases classified elsewhere, unspecified severity, without behavioral disturbance, psychotic disturbance, mood disturbance, and anxiety; I34.0 Nonrheumatic mitral (valve) insufficiency; R73.9 Hyperglycemia, unspecified; K21.9 Gastro-esophageal reflux disease without esophagitis; Z99.81 Dependence on supplemental oxygen; Z71.6 Tobacco abuse counseling; Z82.49 Family history of ischemic heart disease and other diseases of the circulatory system; Z83.3 Family history of diabetes mellitus; Z79.899 Other long term (current) drug therapy; Z68.23 Body mass index [BMI] 23.0-23.9, adult